=== PATIENT | female | born 1950 | race Caucasian/White ===

== ENCOUNTER 2022-04-09 14:34 | Emergency (ER) | payer MEDICARE, OTHER ==
[~2022-04-09] VITALS: Ht 152.4 cm; Wt 79.8 kg
[2022-04-09] MEDS ORDERED: Roxicodone5 MG PO (17:06)
== END 2022-04-09 17:34 | disposition home or self-care (01) ==
LOC: ER 14:34
DX: R52 Pain, unspecified (principal); E11.42 Type 2 diabetes mellitus with diabetic polyneuropathy; Z79.899 Other long term (current) drug therapy
CPT/HCPCS: 99283

== ENCOUNTER → 2022-06-07 | Outpatient (CLI) | payer OTHER ==
[~2022-06-07] MED LIST: ALBU2.5V5 INH; ALBU90OI INH; ALUM-MAG HYDROX30 ML PO; ATORVASTATIN CA40 M1 PO; Acetaminophen325 M1 PO; Aspir 8181 MG PO; BANOPHEN25 MG PO; CLOP75 PO; Crestor20 MG PO; DECADRON4 M1 PO; DIAPER RASH113 G1 TOP; FURO40 PO; FUROSEMIDE40 MG PO; Flonase 0.05% N16 GM; GABA300 PO; GLIM4 PO; JARDIANCE25 MG PO; Januvia50 MG PO; LATANOPROST2.5 M3 BOTHEYES; LEVSOD100 PO; LEVSOD75 PO; LOPE2C PO; Latanoprost BOTHEYES; MIRALAX17 GM PO; MYRBETRIQ25 MG PO; MYRBETRIQ50 MG PO; NEURONTIN300 MG PO; NITR.4SL SL; OXYC5 PO; POTA10T PO; PREG150 PO; Q-Tussin100 MG/5 M PO; Roxicodone5 MG PO; SENNA LAXATIVE8.6 MG PO; SITA100T2 PO; SOLI5 PO; SYNTHROID150 MC1 PO; TRADJENTA5 MG PO
== END | disposition home or self-care (01) ==
LOC: LAB 12:55 → LAB SHORT 12:55
DX: N89.8 Other specified noninflammatory disorders of vagina (principal)
CPT/HCPCS: 87086

== ENCOUNTER 2022-06-15 13:17 | Emergency (ER) | payer OTHER ==
[~2022-06-15] VITALS: Ht 152.4 cm; Wt 84.4 kg
[~2022-06-15 13:17] MED LIST changes: -ALBU2.5V5 INH; -ALBU90OI INH; -ALUM-MAG HYDROX30 ML PO; -ATORVASTATIN CA40 M1 PO; -Acetaminophen325 M1 PO; -Aspir 8181 MG PO; -BANOPHEN25 MG PO; -CLOP75 PO; -Crestor20 MG PO; -DECADRON4 M1 PO; -DIAPER RASH113 G1 TOP; -FURO40 PO; -FUROSEMIDE40 MG PO; -Flonase 0.05% N16 GM; -GABA300 PO; -GLIM4 PO; -JARDIANCE25 MG PO; -Januvia50 MG PO; -LATANOPROST2.5 M3 BOTHEYES; -LEVSOD100 PO; -LEVSOD75 PO; -LOPE2C PO; -Latanoprost BOTHEYES; -MIRALAX17 GM PO; -MYRBETRIQ25 MG PO; -MYRBETRIQ50 MG PO; -NEURONTIN300 MG PO; -NITR.4SL SL; -OXYC5 PO; -POTA10T PO; -PREG150 PO; -Q-Tussin100 MG/5 M PO; -SENNA LAXATIVE8.6 MG PO; -SITA100T2 PO; -SOLI5 PO; -SYNTHROID150 MC1 PO; -TRADJENTA5 MG PO
[2022-06-15 14:48] LABS: BASOPHILS ABSOLUTE AUTO 0.02 K/mm3 (0.00-0.23); BASOPHILS PERCENT AUTO 0 % (0-2); EOSINOPHILS ABSOLUTE AUTO 0.04 K/mm3 (0.00-0.68); EOSINOPHILS PERCENT AUTO 1 % (0-6); Hematocrit 40.5 % (33.0-51.0); Hemoglobin 13.3 g/dL (11.5-16.0); IMMATURE GRAN ABSOLUTE AUTO 0.06 K/mm3 (0.00-0.10); IMMATURE GRAN PERCENT AUTO 1 % (0-1); LYMPHOCYTES ABSOLUTE AUTO 1.38 K/mm3 (0.84-5.20); LYMPHOCYTES PERCENT AUTO 19 % (21-46); MONOCYTES ABSOLUTE AUTO 0.35 K/mm3 (0.16-1.47); MONOCYTES PERCENT AUTO 5 % (4-13); Mean Corpuscular HGB 29.6 pg (26.0-34.0); Mean Corpuscular HGB Conc 32.8 g/dL (31.5-36.5); Mean Corpuscular Volume 90 fL (80-100); Mean Platelet Volume 10.2 fL (9.1-12.4); NEUTROPHILS ABSOLUTE AUTO 5.53 K/mm3 (1.96-9.15); NEUTROPHILS PERCENT AUTO 75 % (41-73); Platelet Count 188 K/mm3 (150-400); RDW Coefficient Variation 13.7 % (11.7-14.2); RDW Standard Deviation 45.9 fL (35.1-46.3); White Blood Cell Count 7.38 K/mm3 (4.00-11.30)
[2022-06-15] MEDS ORDERED: Aspir 8181 MG PO (15:06)
[2022-06-15] MEDS ORDERED: ALBU2.5V5 INH (15:06)
[2022-06-15] MEDS ORDERED: GLIM4 PO (15:07)
[2022-06-15] MEDS ORDERED: JARDIANCE25 MG PO (15:07)
[2022-06-15] MEDS ORDERED: CLOP75 PO (15:07)
[2022-06-15] MEDS ORDERED: LEVSOD75 PO (15:08)
[2022-06-15] MEDS ORDERED: MYRBETRIQ50 MG PO (15:09)
[2022-06-15] MEDS ORDERED: POTA10T PO (15:09)
[2022-06-15] MEDS ORDERED: PREG150 PO (15:10)
[2022-06-15] MEDS ORDERED: Crestor20 MG PO (15:11)
[2022-06-15 16:28] LABS: Albumin, Blood 3.3 g/dL (3.4-5.0); Albumin/Globulin Ratio 0.7 (0.8-1.8); Bilirubin, Total 0.8 mg/dL (0.1-1.0); Bun/Creatinine Ratio 11.7 (12.0-20.0); Calcium, Blood 9.3 mg/dL (8.5-10.1); Creatinine, Blood 0.86 mg/dL (0.40-1.00); Globulin, Blood 4.7 g/dL (2.2-4.0); Potassium, Blood 3.6 mmol/L (3.5-5.5)
[2022-06-15 19:09] LABS: Source, Urine Foley catheter
[2022-06-15 19:20] LABS: Appearance, Urine Clear (Clear); Bilirubin, Urine Neg (Neg); Blood, Urine Neg (Neg); Color, Urine Yellow (P-Yellow); Glucose Qualitative, Urine 4+ (Neg); Ketones, Urine Neg (Neg); Leukocyte Esterase, Urine Neg (Neg); Nitrite, Urine Neg (Neg); Protein, Urine Neg (Neg); Urobilinogen, Urine NORM (Normal)
== END 2022-06-15 21:15 | disposition home or self-care (01) ==
LOC: ER 13:17
PROVIDERS: Emergency Medicine
DX: R10.84 Generalized abdominal pain (principal); R33.9 Retention of urine, unspecified; R11.2 Nausea with vomiting, unspecified; R19.7 Diarrhea, unspecified
CPT/HCPCS: 51702; 51798; 74177; 80053; 81003; 83690; 85025; J2405; J3010; J7030; Q9967

== ENCOUNTER 2022-07-01 14:44 | Observation (INO) | payer OTHER ==
[~2022-07-01] VITALS: Ht 152.4 cm; Wt 82.2 kg
[~2022-07-01 14:44] MED LIST changes: +ALBU2.5V5 INH; +Aspir 8181 MG PO; +CLOP75 PO; +Crestor20 MG PO; +GLIM4 PO; +JARDIANCE25 MG PO; +LEVSOD75 PO; +MYRBETRIQ50 MG PO; +POTA10T PO; +PREG150 PO
[2022-07-01 15:35] LABS: BASOPHILS ABSOLUTE AUTO 0.01 K/mm3 (0.00-0.23); BASOPHILS PERCENT AUTO 0 % (0-2); EOSINOPHILS ABSOLUTE AUTO 0.15 K/mm3 (0.00-0.68); EOSINOPHILS PERCENT AUTO 4 % (0-6); Hematocrit 40.3 % (33.0-51.0); Hemoglobin 12.9 g/dL (11.5-16.0); IMMATURE GRAN ABSOLUTE AUTO 0.02 K/mm3 (0.00-0.10); IMMATURE GRAN PERCENT AUTO 1 % (0-1); LYMPHOCYTES ABSOLUTE AUTO 0.93 K/mm3 (0.84-5.20); LYMPHOCYTES PERCENT AUTO 22 % (21-46); MONOCYTES ABSOLUTE AUTO 0.72 K/mm3 (0.16-1.47); MONOCYTES PERCENT AUTO 17 % (4-13); Mean Corpuscular HGB 29.4 pg (26.0-34.0); Mean Corpuscular Volume 92 fL (80-100); NEUTROPHILS PERCENT AUTO 57 % (41-73); Platelet Count 122 K/mm3 (150-400); RDW Coefficient Variation 14.6 % (11.7-14.2); RDW Standard Deviation 49.1 fL (35.1-46.3); Red Blood Cell Count 4.39 M/mm3 (3.80-5.20); White Blood Cell Count 4.23 K/mm3 (4.00-11.30)
[2022-07-01 15:53] LABS: Albumin, Blood 3.1 g/dL (3.4-5.0); Albumin/Globulin Ratio 0.8 (0.8-1.8); Bilirubin, Total 0.5 mg/dL (0.1-1.0); Bun/Creatinine Ratio 17.6 (12.0-20.0); Creatinine, Blood 0.91 mg/dL (0.40-1.00); Globulin, Blood 4.1 g/dL (2.2-4.0); Potassium, Blood 3.3 mmol/L (3.5-5.5); Total Protein, Blood 7.2 g/dL (6.4-8.2)
[2022-07-01] MEDS ORDERED: BANOPHEN25 MG PO (18:12)
[2022-07-01] MEDS ORDERED: FUROSEMIDE40 MG PO (18:14)
[2022-07-01] MEDS ORDERED: Latanoprost BOTHEYES (18:15)
[2022-07-01] MEDS ORDERED: SYNTHROID150 MC1 PO (18:17)
[2022-07-01] MEDS ORDERED: Januvia50 MG PO (18:18)
[2022-07-01] MEDS ORDERED: ATORVASTATIN CA40 M1 PO (20:18)
[2022-07-01] MEDS ORDERED: NEURONTIN300 MG PO (20:18)
[2022-07-01] MEDS ORDERED: LATANOPROST2.5 M3 BOTHEYES (20:20)
[2022-07-01] MEDS ORDERED: Acetaminophen325 M1 PO (22:25)
[2022-07-01] MEDS ORDERED: ALBU90OI INH (22:27)
[2022-07-01] MEDS ORDERED: ALUM-MAG HYDROX30 ML PO (22:28)
[2022-07-01] MEDS ORDERED: Aspir 8181 MG PO (22:28)
[2022-07-01] MEDS ORDERED: GLIM4 PO (22:29)
[2022-07-01] MEDS ORDERED: CLOP75 PO (22:29)
[2022-07-01] MEDS ORDERED: LOPE2C PO (22:30)
[2022-07-01] MEDS ORDERED: MYRBETRIQ25 MG PO (22:30)
[2022-07-01] MEDS ORDERED: JARDIANCE25 MG PO (22:30)
[2022-07-01] MEDS ORDERED: NITR.4SL SL (22:31)
[2022-07-01] MEDS ORDERED: MIRALAX17 GM PO (22:31)
[2022-07-01] MEDS ORDERED: PREG150 PO (22:32)
[2022-07-01] MEDS ORDERED: POTA10T PO (22:32)
[2022-07-01] MEDS ORDERED: Crestor20 MG PO (22:32)
[2022-07-01] MEDS ORDERED: DIAPER RASH113 G1 TOP (22:34)
[2022-07-01] MEDS ORDERED: SENNA LAXATIVE8.6 MG PO (22:35)
[2022-07-01] MEDS ORDERED: OXYC5 PO (22:36)
--- NOTE | 2022-07-02 05:11 | NUR ---
LATE ENTRY FOR 07/01/22 2020: ADMISSION: PATIENT IS RECIEVED FROM ER VIA STRETCHER. PATIENT ABLE TO AMB. FROM STRETCHER TO THE BED WITH STAEDY GAIT. PATIENT REPORTS FEELING WEEK. PATIENT IS ORIENTED TOP ROOM AND CALL HAYNES. PATIENT IS IN ENHANCED ISOLATION FOR COVID.
[2022-07-02 05:48] LABS: BASOPHILS ABSOLUTE AUTO 0.02 K/mm3 (0.00-0.23); BASOPHILS PERCENT AUTO 0 % (0-2); EOSINOPHILS ABSOLUTE AUTO 0.19 K/mm3 (0.00-0.68); EOSINOPHILS PERCENT AUTO 3 % (0-6); Hematocrit 41.4 % (33.0-51.0); Hemoglobin 13.5 g/dL (11.5-16.0); IMMATURE GRAN ABSOLUTE AUTO 0.02 K/mm3 (0.00-0.10); IMMATURE GRAN PERCENT AUTO 0 % (0-1); LYMPHOCYTES ABSOLUTE AUTO 1.31 K/mm3 (0.84-5.20); LYMPHOCYTES PERCENT AUTO 22 % (21-46); MONOCYTES ABSOLUTE AUTO 0.73 K/mm3 (0.16-1.47); MONOCYTES PERCENT AUTO 12 % (4-13); Mean Corpuscular HGB 29.7 pg (26.0-34.0); Mean Corpuscular HGB Conc 32.6 g/dL (31.5-36.5); Mean Corpuscular Volume 91 fL (80-100); Mean Platelet Volume 10.3 fL (9.1-12.4); NEUTROPHILS ABSOLUTE AUTO 3.77 K/mm3 (1.96-9.15); NEUTROPHILS PERCENT AUTO 63 % (41-73); Platelet Count 147 K/mm3 (150-400); RDW Coefficient Variation 14.5 % (11.7-14.2); RDW Standard Deviation 48.5 fL (35.1-46.3); Red Blood Cell Count 4.54 M/mm3 (3.80-5.20); White Blood Cell Count 6.04 K/mm3 (4.00-11.30)
[2022-07-02 06:14] LABS: Albumin, Blood 3.1 g/dL (3.4-5.0); Anion Gap 8 mmol/L (6-16); Blood Urea Nitrogen 16 mg/dL (8-24); Bun/Creatinine Ratio 16.2 (12.0-20.0); CO2, Blood 30 mmol/L (21-32); Calcium, Blood 8.5 mg/dL (8.5-10.1); Chloride, Blood 104 mmol/L (98-108); Creatinine, Blood 0.99 mg/dL (0.40-1.00); Glomerular Filtration Rate 61 (60-); Glucose, Blood 160 mg/dL (70-99); Magnesium, Blood 2.2 mg/dL (1.6-2.4); Phosphorus, Blood 3.4 mg/dL (2.5-4.9); Potassium, Blood 2.7 mmol/L (3.5-5.5); Sodium, Blood 142 mmol/L (136-145)
[2022-07-02] MEDS ORDERED: Q-Tussin100 MG/5 M PO (14:55)
[2022-07-02] MEDS ORDERED: DECADRON4 M1 PO (14:55)
[2022-07-02] MEDS ORDERED: Flonase 0.05% N16 GM (14:56)
--- NOTE | 2022-07-02 15:18 | NUR ---
PT DISCHARGED THE PT VERBALIZED UNDERSTANDING OF THE DC INSTRUCTIONS. THE PTS PRESCRIPITIONS WERE FAXED TO PHARMACY OF HER REQUEST. THE PT REPORTED THAT SHE WAS FEELING BETTER AT THE TIME OF DC. PT WAS TRANSFERED VIA WHEELCHAIR ACCOMPANIED BY [facility]
== END 2022-07-02 15:10 | disposition home health service (06) ==
LOC: ER 14:44 → MEDS 17:17 → ERHOLD 17:17 → MEDS 21:23
PROVIDERS: Student in an Organized Health Care Education/Training Program; ADMIT Family Medicine
DX: U07.1 COVID-19 (principal); J96.01 Acute respiratory failure with hypoxia; M81.0 Age-related osteoporosis without current pathological fracture; E11.40 Type 2 diabetes mellitus with diabetic neuropathy, unspecified; M79.7 Fibromyalgia; E87.6 Hypokalemia; Z88.6 Allergy status to analgesic agent; Z88.8 Allergy status to other drugs, medicaments and biological substances; I51.7 Cardiomegaly
CPT/HCPCS: 36415; 71045; 80053; 80069; 82947; 83735; 83880; 84132; 84484; 85025; 93005; 93010; 94761; 99285-25; A9270; J1650; J7030

== ENCOUNTER 2022-07-30 11:56 | Emergency (ER) | payer OTHER ==
[~2022-07-30] VITALS: Ht 152.4 cm; Wt 83.0 kg
[~2022-07-30 11:56] MED LIST changes: +ALBU90OI INH; +ALUM-MAG HYDROX30 ML PO; +ATORVASTATIN CA40 M1 PO; +Acetaminophen325 M1 PO; +BANOPHEN25 MG PO; +DECADRON4 M1 PO; +DIAPER RASH113 G1 TOP; +FURO40 PO; +FUROSEMIDE40 MG PO; +Flonase 0.05% N16 GM; +GABA300 PO; +Januvia50 MG PO; +LATANOPROST2.5 M3 BOTHEYES; +LEVSOD100 PO; +LOPE2C PO; +Latanoprost BOTHEYES; +MIRALAX17 GM PO; +MYRBETRIQ25 MG PO; +NEURONTIN300 MG PO; +NITR.4SL SL; +OXYC5 PO; +Q-Tussin100 MG/5 M PO; +SENNA LAXATIVE8.6 MG PO; +SITA100T2 PO; +SOLI5 PO; +SYNTHROID150 MC1 PO; +TRADJENTA5 MG PO
== END 2022-07-30 15:21 | disposition left against medical advice (07) ==
LOC: ER 11:56
DX: R52 Pain, unspecified (principal); Z53.21 Procedure and treatment not carried out due to patient leaving prior to being seen by health care provider
CPT/HCPCS: 99281

== ENCOUNTER → 2022-08-30 | Outpatient (CLI) | payer OTHER ==
[~2022-08-30] MED LIST changes: +BASAGLAR K100 UNIT/3 SC; +BASAGLAR K100 UNIT/8; +GABAPENTIN600 MG PO; +METR500 PO; +ZOLOFT50 MG PO
[2022-08-31 10:26] LABS: Candida species (DNA Probe) Negative (NEGATIVE); G. vaginalis (DNA Probe) Positive (NEGATIVE); T. vaginalis (DNA Probe) Negative (NEGATIVE)
== END | disposition home or self-care (01) ==
LOC: LAB SHORT 14:58 → LAB 14:58
PROVIDERS: Obstetrics & Gynecology
DX: N89.8 Other specified noninflammatory disorders of vagina (principal)
CPT/HCPCS: 87480; 87510; 87660

== ENCOUNTER 2022-09-07 08:09 | Day surgery (SDC) | payer OTHER ==
[~2022-09-07] VITALS: Ht 152.4 cm; Wt 81.2 kg
[~2022-09-07 08:09] MED LIST changes: -BASAGLAR K100 UNIT/3 SC; -BASAGLAR K100 UNIT/8; -GABAPENTIN600 MG PO; -METR500 PO; -ZOLOFT50 MG PO
[2022-09-07] MEDS ORDERED: OXYC5 PO (08:51)
--- NOTE | 2022-09-07 08:57 | NUR ---
09/07/22 0857 Elizabeth Mcguire AT 0843 P AT 0837
--- NOTE | 2022-09-07 11:29 | NUR ---
09/07/22 1129 MARIANNA GEORGES PTS IV GOT PULLED OUT WHEN PATIENT WAS WAKING UP FROM PROCEDURE. SITE CHECKED AND CLEANED. GAUZE AND TAPE APPLIED TO AREA. REPORT GIVEN TO JERRY HUBER. AUDIT INTERN AWARE OF IV BEING PULLED OUT. OK TO LEAVE IV D/C'D PER DR. CAMEJO.
[2022-09-08] MEDS ORDERED: GABAPENTIN600 MG PO (13:41)
[2022-09-08] MEDS ORDERED: BASAGLAR K100 UNIT/3 SC (13:42)
[2022-09-08] MEDS ORDERED: METR500 PO (13:44)
[2022-09-08] MEDS ORDERED: ZOLOFT50 MG PO (13:48)
[2022-09-08] MEDS ORDERED: BASAGLAR K100 UNIT/8 (13:48)
[2022-09-08] MEDS ORDERED: MYRBETRIQ50 MG PO (13:49)
== END 2022-09-07 11:05 | disposition home or self-care (01) ==
LOC: ORSCSDS 08:09
PROVIDERS: Student in an Organized Health Care Education/Training Program
PROC: 08RK3JZ Replacement of Left Lens with Synthetic Substitute, Percutaneous Approach (ICD-10-PCS; principal; 2022-09-07 09:45)
DX: H25.13 Age-related nuclear cataract, bilateral (principal); H40.1130 Primary open-angle glaucoma, bilateral, stage unspecified; G47.33 Obstructive sleep apnea (adult) (pediatric); Z86.73 Personal history of transient ischemic attack (TIA), and cerebral infarction without residual deficits; E11.40 Type 2 diabetes mellitus with diabetic neuropathy, unspecified; E11.9 Type 2 diabetes mellitus without complications; I73.9 Peripheral vascular disease, unspecified; M79.7 Fibromyalgia; E07.9 Disorder of thyroid, unspecified; E66.9 Obesity, unspecified; Z68.35 Body mass index [BMI] 35.0-35.9, adult; Z79.02 Long term (current) use of antithrombotics/antiplatelets; Z79.51 Long term (current) use of inhaled steroids; Z79.899 Other long term (current) drug therapy
CPT/HCPCS: 82947; A9270; J1100; J2001; J2250; J2405; J2704; J3010; J7040; V2632

== ENCOUNTER 2022-09-08 11:12 | Emergency (ER) | payer OTHER ==
[~2022-09-08] VITALS: Ht 152.4 cm; Wt 80.3 kg
[2022-09-08 11:29] LABS: BASOPHILS ABSOLUTE AUTO 0.01 K/mm3 (0.00-0.23); BASOPHILS PERCENT AUTO 0 % (0-2); EOSINOPHILS ABSOLUTE AUTO 0.01 K/mm3 (0.00-0.68); EOSINOPHILS PERCENT AUTO 0 % (0-6); Hematocrit 39.2 % (33.0-51.0); Hemoglobin 13.3 g/dL (11.5-16.0); IMMATURE GRAN ABSOLUTE AUTO 0.06 K/mm3 (0.00-0.10); IMMATURE GRAN PERCENT AUTO 1 % (0-1); LYMPHOCYTES ABSOLUTE AUTO 1.78 K/mm3 (0.84-5.20); LYMPHOCYTES PERCENT AUTO 15 % (21-46); MONOCYTES ABSOLUTE AUTO 0.85 K/mm3 (0.16-1.47); MONOCYTES PERCENT AUTO 7 % (4-13); Mean Corpuscular HGB 31.2 pg (26.0-34.0); Mean Corpuscular HGB Conc 33.9 g/dL (31.5-36.5); Mean Corpuscular Volume 92 fL (80-100); Mean Platelet Volume 9.7 fL (9.1-12.4); NEUTROPHILS ABSOLUTE AUTO 9.26 K/mm3 (1.96-9.15); NEUTROPHILS PERCENT AUTO 77 % (41-73); Platelet Count 215 K/mm3 (150-400); RDW Coefficient Variation 13.2 % (11.7-14.2); Red Blood Cell Count 4.26 M/mm3 (3.80-5.20); White Blood Cell Count 11.97 K/mm3 (4.00-11.30)
[2022-09-08 11:48] LABS: Albumin, Blood 3.6 g/dL (3.4-5.0); Albumin/Globulin Ratio 0.9 (0.8-1.8); Bilirubin, Total 0.7 mg/dL (0.1-1.0); Bun/Creatinine Ratio 13.5 (12.0-20.0); Calcium, Blood 8.8 mg/dL (8.5-10.1); Creatinine, Blood 0.89 mg/dL (0.40-1.00); Globulin, Blood 3.9 g/dL (2.2-4.0); Potassium, Blood 4.4 mmol/L (3.5-5.5); Total Protein, Blood 7.5 g/dL (6.4-8.2)
[2022-09-08 12:13] LABS: Influenza A, PCR NEGATIVE (NEGATIVE); Influenza B, PCR NEGATIVE (NEGATIVE); Resp Syncytial Virus, PCR NEGATIVE (NEGATIVE); SARS-Cov-2 (COVID-19) PCR, MMC NEGATIVE (NEGATIVE)
[2022-09-08] MEDS ORDERED: GABAPENTIN600 MG PO (13:41)
[2022-09-08] MEDS ORDERED: BASAGLAR K100 UNIT/3 SC (13:42)
[2022-09-08] MEDS ORDERED: METR500 PO (13:44)
[2022-09-08] MEDS ORDERED: ZOLOFT50 MG PO (13:48)
[2022-09-08] MEDS ORDERED: BASAGLAR K100 UNIT/8 (13:48)
[2022-09-08] MEDS ORDERED: MYRBETRIQ50 MG PO (13:49)
== END 2022-09-08 14:48 | disposition home or self-care (01) ==
LOC: ER 11:12
PROVIDERS: Student in an Organized Health Care Education/Training Program
DX: R07.9 Chest pain, unspecified (principal); G89.29 Other chronic pain; E11.40 Type 2 diabetes mellitus with diabetic neuropathy, unspecified; Z87.39 Personal history of other diseases of the musculoskeletal system and connective tissue; Z88.7 Allergy status to serum and vaccine; Z88.8 Allergy status to other drugs, medicaments and biological substances; Z88.6 Allergy status to analgesic agent; Z91.018 Allergy to other foods; Z79.899 Other long term (current) drug therapy; Z20.822 Contact with and (suspected) exposure to COVID-19
CPT/HCPCS: 0241U; 36415; 71046; 80053; 83735; 84484; 85025; 93005; 93010; 96374; 96375; 99285-25; A9270; J1885

== ENCOUNTER → 2022-09-15 | Outpatient (CLI) | payer OTHER ==
[~2022-09-15] MED LIST changes: +BASAGLAR K100 UNIT/3 SC; +BASAGLAR K100 UNIT/8; +CLIN150 PO; +GABAPENTIN600 MG PO; +METR500 PO; +PREDNISOLO15 MG/5 ML LEFTEYE; +TIZA4 PO; +ZOLOFT50 MG PO
== END | disposition home or self-care (01) ==
LOC: LAB 16:47 → LAB SHORT 16:47
DX: R07.9 Chest pain, unspecified (principal)
CPT/HCPCS: 84484

== ENCOUNTER → 2022-09-20 | Outpatient (CLI) | payer OTHER ==
[2022-09-21 10:34] LABS: Candida species (DNA Probe) Negative (NEGATIVE); G. vaginalis (DNA Probe) Positive (NEGATIVE); T. vaginalis (DNA Probe) Negative (NEGATIVE)
== END ==
LOC: LAB 14:52 → LAB SHORT 14:52
PROVIDERS: Obstetrics & Gynecology
DX: N76.0 Acute vaginitis (principal)
CPT/HCPCS: 87480; 87510; 87660

== ENCOUNTER 2022-09-21 01:16 | Observation (INO) | payer OTHER ==
[~2022-09-21] VITALS: Ht 152.4 cm; Wt 81.7 kg
[~2022-09-21 01:16] MED LIST changes: -CLIN150 PO; -PREDNISOLO15 MG/5 ML LEFTEYE; -TIZA4 PO
[2022-09-21 01:32] LABS: BASOPHILS ABSOLUTE AUTO 0.02 K/mm3 (0.00-0.23); BASOPHILS PERCENT AUTO 0 % (0-2); EOSINOPHILS ABSOLUTE AUTO 0.03 K/mm3 (0.00-0.68); EOSINOPHILS PERCENT AUTO 0 % (0-6); Hematocrit 41.3 % (33.0-51.0); Hemoglobin 13.9 g/dL (11.5-16.0); IMMATURE GRAN ABSOLUTE AUTO 0.04 K/mm3 (0.00-0.10); IMMATURE GRAN PERCENT AUTO 0 % (0-1); LYMPHOCYTES ABSOLUTE AUTO 1.22 K/mm3 (0.84-5.20); LYMPHOCYTES PERCENT AUTO 12 % (21-46); MONOCYTES ABSOLUTE AUTO 0.56 K/mm3 (0.16-1.47); MONOCYTES PERCENT AUTO 5 % (4-13); Mean Corpuscular HGB 30.7 pg (26.0-34.0); Mean Corpuscular HGB Conc 33.7 g/dL (31.5-36.5); Mean Corpuscular Volume 91 fL (80-100); Mean Platelet Volume 9.3 fL (9.1-12.4); NEUTROPHILS ABSOLUTE AUTO 8.58 K/mm3 (1.96-9.15); NEUTROPHILS PERCENT AUTO 82 % (41-73); Platelet Count 219 K/mm3 (150-400); RDW Coefficient Variation 13.2 % (11.7-14.2); RDW Standard Deviation 44.9 fL (35.1-46.3); Red Blood Cell Count 4.53 M/mm3 (3.80-5.20); White Blood Cell Count 10.45 K/mm3 (4.00-11.30)
[2022-09-21 01:50] LABS: Albumin, Blood 3.6 g/dL (3.4-5.0); Albumin/Globulin Ratio 0.9 (0.8-1.8); Bilirubin, Total 0.5 mg/dL (0.1-1.0); Calcium, Blood 9.2 mg/dL (8.5-10.1); Creatinine, Blood 0.96 mg/dL (0.40-1.00); Potassium, Blood 4.4 mmol/L (3.5-5.5); Total Protein, Blood 7.6 g/dL (6.4-8.2)
[2022-09-21 07:41] LABS: BASOPHILS ABSOLUTE AUTO 0.01 K/mm3 (0.00-0.23); BASOPHILS PERCENT AUTO 0 % (0-2); EOSINOPHILS PERCENT AUTO 0 % (0-6); Hematocrit 39.5 % (33.0-51.0); IMMATURE GRAN ABSOLUTE AUTO 0.06 K/mm3 (0.00-0.10); IMMATURE GRAN PERCENT AUTO 1 % (0-1); LYMPHOCYTES ABSOLUTE AUTO 0.86 K/mm3 (0.84-5.20); LYMPHOCYTES PERCENT AUTO 10 % (21-46); MONOCYTES ABSOLUTE AUTO 0.36 K/mm3 (0.16-1.47); MONOCYTES PERCENT AUTO 4 % (4-13); Mean Corpuscular HGB 30.7 pg (26.0-34.0); Mean Corpuscular HGB Conc 32.9 g/dL (31.5-36.5); Mean Corpuscular Volume 93 fL (80-100); Mean Platelet Volume 9.6 fL (9.1-12.4); NEUTROPHILS ABSOLUTE AUTO 7.67 K/mm3 (1.96-9.15); NEUTROPHILS PERCENT AUTO 86 % (41-73); Platelet Count 204 K/mm3 (150-400); RDW Coefficient Variation 13.2 % (11.7-14.2); RDW Standard Deviation 45.2 fL (35.1-46.3); Red Blood Cell Count 4.23 M/mm3 (3.80-5.20); White Blood Cell Count 8.96 K/mm3 (4.00-11.30)
[2022-09-21 07:52] LABS: Bun/Creatinine Ratio 24.8 (12.0-20.0); Calcium, Blood 9.1 mg/dL (8.5-10.1); Creatinine, Blood 1.09 mg/dL (0.40-1.00); Potassium, Blood 5.4 mmol/L (3.5-5.5)
--- NOTE | 2022-09-21 14:31 | NUR ---
ADMIT PT ADMITTED. ORIENTED TO ROOM. CALL LIGHT IN REACH. WATER PROVIDED.
[2022-09-21] MEDS ORDERED: PREDNISOLO15 MG/5 ML LEFTEYE (14:57)
[2022-09-21] MEDS ORDERED: CLIN150 PO (15:19)
--- NOTE | 2022-09-22 05:38 | NUR ---
Rn summary: Patient is alert and oriented. Patient with L sided chest pain that is consistent 7-8 . Pain increases when patient moves in bed, or tries to sit up. Lung rubio diminished in bases, pt is on RA. Pt has distended abdomen, active boweltones, patient reported some vaginal spotting after getting up to the bathroom. Patient is up independantly to BR with walker. Patient was medicated x2 with morphine 4mg IV. Patient got some relief, does not rest, is on her phone all the time. Pt medicated at 0458 with oxy 5mg. Pt states pain down from 8 to 7. Plan for 2nd part of stress test. call light in reach, able to make needs known.
[2022-09-22 07:08] LABS: Bun/Creatinine Ratio 29.4 (12.0-20.0); Calcium, Blood 9.3 mg/dL (8.5-10.1); Creatinine, Blood 1.09 mg/dL (0.40-1.00); Potassium, Blood 4.1 mmol/L (3.5-5.5)
[2022-09-22] MEDS ORDERED: TIZA4 PO (17:30)
--- NOTE | 2022-09-22 18:23 | NUR ---
PT DISCHARGED THE PT VERBALIZED UNDERSTANDING OF THE DC ORDERS. THE PT SPOKE WITH DR. NAJERA OVER THE PHONE JUST PRIOR TO DC. THE PTS PRESCRIPTION WAS FAXED TO [facility]. THE PT WAS TRANSFERED VIA WHEELCHAIR ACCOMPANIED BY THE WET PROCESS MILLER HEAD ASSISTANT TO MEET HER RIDE AT THE FRONT
== END 2022-09-22 18:15 | disposition home or self-care (01) ==
LOC: ER 01:16 → ERHOLD 01:17 → MEDS 14:16
PROVIDERS: Internal Medicine; Student in an Organized Health Care Education/Training Program; ADMIT Internal Medicine
DX: R07.89 Other chest pain (principal); E11.40 Type 2 diabetes mellitus with diabetic neuropathy, unspecified; I25.2 Old myocardial infarction; I25.10 Atherosclerotic heart disease of native coronary artery without angina pectoris; E03.9 Hypothyroidism, unspecified; I50.32 Chronic diastolic (congestive) heart failure; N18.30 Chronic kidney disease, stage 3 unspecified; E11.22 Type 2 diabetes mellitus with diabetic chronic kidney disease; F32.A Depression, unspecified; M79.7 Fibromyalgia; Z88.6 Allergy status to analgesic agent; Z88.8 Allergy status to other drugs, medicaments and biological substances; Z88.7 Allergy status to serum and vaccine; Z79.4 Long term (current) use of insulin; Z79.02 Long term (current) use of antithrombotics/antiplatelets; Z95.5 Presence of coronary angioplasty implant and graft; Z86.73 Personal history of transient ischemic attack (TIA), and cerebral infarction without residual deficits; Z91.018 Allergy to other foods
CPT/HCPCS: 36415; 71045; 78452; 80048; 80053; 82947; 83880; 84484; 85025; 93005; 93010; 93017; 94760; 96372; 96376; A9270; A9500; G0378; J1650; J1815; J1885; J2270; J2405; J2785

== ENCOUNTER 2022-10-14 11:45 | Day surgery (SDC) | payer OTHER ==
[~2022-10-14] VITALS: Ht 152.4 cm; Wt 74.1 kg
[~2022-10-14 11:45] MED LIST changes: +CLIN150 PO; +PREDNISOLO15 MG/5 ML LEFTEYE; +TIZA4 PO
--- NOTE | 2022-10-14 14:12 | NUR ---
10/14/22 1412 Fara Mendoza 100CC NACL FLUID DEFICIT-SURGEON AWARE
--- NOTE | 2022-10-14 14:57 | NUR ---
10/14/22 1457 Edgar Schumacher PT C/O PAIN8/10, GIVEN 1000MG TYLENOL PO PER MD ORDER; 25MCG FENTANYL IVP GIVEN PER MD ORDER; ZOFRAN 4MG IV GIVEN PER MD ORDER FOR NAUSEA BP 146/49 PULSE 81 O2SAT 96% PT AOX3
[2022-10-20 15:10] LABS: HPV 16 Negative (Negative); HPV 18 Negative (Negative)
== END 2022-10-14 15:37 | disposition home or self-care (01) ==
LOC: ORSCSDS 11:45
PROVIDERS: Obstetrics & Gynecology
PROC: 0UDB8ZX Extraction of Endometrium, Via Natural or Artificial Opening Endoscopic, Diagnostic (ICD-10-PCS; principal; 2022-10-14 13:00)
PROC: 0UB98ZX Excision of Uterus, Via Natural or Artificial Opening Endoscopic, Diagnostic (ICD-10-PCS; principal; 2022-10-14 13:00)
DX: N84.0 Polyp of corpus uteri (principal); R93.89 Abnormal findings on diagnostic imaging of other specified body structures; N95.0 Postmenopausal bleeding; N89.8 Other specified noninflammatory disorders of vagina; I25.10 Atherosclerotic heart disease of native coronary artery without angina pectoris; E11.22 Type 2 diabetes mellitus with diabetic chronic kidney disease; I12.9 Hypertensive chronic kidney disease with stage 1 through stage 4 chronic kidney disease, or unspecified chronic kidney disease; N18.9 Chronic kidney disease, unspecified; G47.33 Obstructive sleep apnea (adult) (pediatric); I25.2 Old myocardial infarction; E03.9 Hypothyroidism, unspecified; Z86.73 Personal history of transient ischemic attack (TIA), and cerebral infarction without residual deficits; Z79.02 Long term (current) use of antithrombotics/antiplatelets; Z79.899 Other long term (current) drug therapy; J44.9 Chronic obstructive pulmonary disease, unspecified; Z79.4 Long term (current) use of insulin
CPT/HCPCS: 82947; 88305; A9270; G0123; J1100; J2250; J2405; J2704; J3010; J7120

== ENCOUNTER 2022-11-18 06:59 | Emergency (ER) | payer OTHER ==
[~2022-11-18] VITALS: Ht 170.2 cm; Wt 72.1 kg
== END 2022-11-18 09:28 | disposition home or self-care (01) ==
LOC: ER 06:59
DX: S00.83XA Contusion of other part of head, initial encounter (principal); W06.XXXA Fall from bed, initial encounter; E11.40 Type 2 diabetes mellitus with diabetic neuropathy, unspecified; Z88.6 Allergy status to analgesic agent; Z88.8 Allergy status to other drugs, medicaments and biological substances; Z88.7 Allergy status to serum and vaccine; Z91.018 Allergy to other foods; Z79.899 Other long term (current) drug therapy
CPT/HCPCS: 70450; 72125; A9270

== ENCOUNTER 2022-12-18 06:51 | Emergency (ER) | payer OTHER ==
[~2022-12-18] VITALS: Ht 152.4 cm; Wt 67.1 kg
== END 2022-12-18 09:39 | disposition home or self-care (01) ==
LOC: ER 06:51
DX: S40.011A Contusion of right shoulder, initial encounter (principal); S00.83XA Contusion of other part of head, initial encounter; W06.XXXA Fall from bed, initial encounter; Z88.6 Allergy status to analgesic agent; Z88.8 Allergy status to other drugs, medicaments and biological substances; Z91.018 Allergy to other foods; Z79.899 Other long term (current) drug therapy; Z79.4 Long term (current) use of insulin; E11.40 Type 2 diabetes mellitus with diabetic neuropathy, unspecified; N18.6 End stage renal disease; I25.10 Atherosclerotic heart disease of native coronary artery without angina pectoris; I25.2 Old myocardial infarction; I50.30 Unspecified diastolic (congestive) heart failure
CPT/HCPCS: 70450; 71045; 73030; 93005; 93010

== ENCOUNTER 2022-12-31 01:21 | Emergency (ER) | payer OTHER ==
[~2022-12-31] VITALS: Ht 157.5 cm; Wt 68.0 kg
== END 2022-12-31 03:48 | disposition home or self-care (01) ==
LOC: ER 01:21
DX: S09.90XA Unspecified injury of head, initial encounter (principal); S40.022A Contusion of left upper arm, initial encounter; I25.2 Old myocardial infarction; E11.22 Type 2 diabetes mellitus with diabetic chronic kidney disease; I50.30 Unspecified diastolic (congestive) heart failure; W06.XXXA Fall from bed, initial encounter; Z88.8 Allergy status to other drugs, medicaments and biological substances; Z79.4 Long term (current) use of insulin; Z79.890 Hormone replacement therapy; Z79.899 Other long term (current) drug therapy; Z86.73 Personal history of transient ischemic attack (TIA), and cerebral infarction without residual deficits
CPT/HCPCS: 70450; 73060; 73590; 73600; 93005; 93010

== ENCOUNTER → 2023-01-03 | Outpatient (CLI) | payer OTHER ==
[2023-01-03 19:31] LABS: Adenovirus F 40/41 Not Detected (NOT DETECT); Astrovirus Not Detected (NOT DETECT); Campylobacter Sp Not Detected (NOT DETECT); Cryptosporidium Not Detected (NOT DETECT); Cyclospora Cayetanensis Not Detected (NOT DETECT); E. Coli O157 Not Detected (NOT DETECT); Entamoeba Histolytica Not Detected (NOT DETECT); Enteroaggregative E. coli-EAEC Not Detected (NOT DETECT); Enteropathogenic E. coli-EPEC Not Detected (NOT DETECT); Enterotoxigenic E. coli-ETEC Not Detected (NOT DETECT); Giardia Lamblia Not Detected (NOT DETECT); Norovirus GI/GII Detected (NOT DETECT); Plesiomonas Shigelloides Not Detected (NOT DETECT); Rotavirus A Not Detected (NOT DETECT); Salmonella Sp Not Detected (NOT DETECT); Sapovirus Not Detected (NOT DETECT); Shiga Toxin-prod E. coli-STEC Not Detected (NOT DETECT); Shigella/Enteroin E. coli-EIEC Not Detected (NOT DETECT); Vibrio Cholerae Not Detected (NOT DETECT); Vibrio Sp Not Detected (NOT DETECT); Yersinia Enterocolitica Not Detected (NOT DETECT)
== END | disposition home or self-care (01) ==
LOC: LAB 13:00 → LAB SHORT 13:00
PROVIDERS: Physician Assistant Medical
DX: R19.7 Diarrhea, unspecified (principal)
CPT/HCPCS: 87507

== ENCOUNTER 2023-01-06 03:31 | Emergency (ER) | payer OTHER ==
[~2023-01-06] VITALS: Ht 152.4 cm; Wt 70.4 kg
[2023-01-06 05:11] LABS: BASOPHILS ABSOLUTE AUTO 0.02 K/mm3 (0.00-0.23); BASOPHILS PERCENT AUTO 0 % (0-2); EOSINOPHILS ABSOLUTE AUTO 0.17 K/mm3 (0.00-0.68); EOSINOPHILS PERCENT AUTO 2 % (0-6); Hematocrit 30.6 % (33.0-51.0); Hemoglobin 10.5 g/dL (11.5-16.0); IMMATURE GRAN ABSOLUTE AUTO 0.05 K/mm3 (0.00-0.10); IMMATURE GRAN PERCENT AUTO 1 % (0-1); LYMPHOCYTES ABSOLUTE AUTO 1.94 K/mm3 (0.84-5.20); LYMPHOCYTES PERCENT AUTO 23 % (21-46); MONOCYTES ABSOLUTE AUTO 0.63 K/mm3 (0.16-1.47); MONOCYTES PERCENT AUTO 7 % (4-13); Mean Corpuscular HGB 31.3 pg (26.0-34.0); Mean Corpuscular HGB Conc 34.3 g/dL (31.5-36.5); Mean Corpuscular Volume 91 fL (80-100); Mean Platelet Volume 9.3 fL (9.1-12.4); NEUTROPHILS ABSOLUTE AUTO 5.71 K/mm3 (1.96-9.15); NEUTROPHILS PERCENT AUTO 67 % (41-73); Platelet Count 190 K/mm3 (150-400); RDW Coefficient Variation 12.5 % (11.7-14.2); RDW Standard Deviation 41.5 fL (35.1-46.3); Red Blood Cell Count 3.35 M/mm3 (3.80-5.20); White Blood Cell Count 8.52 K/mm3 (4.00-11.30)
[2023-01-06 05:36] LABS: Albumin, Blood 2.8 g/dL (3.4-5.0); Albumin/Globulin Ratio 0.8 (0.8-1.8); Bilirubin, Total 0.7 mg/dL (0.1-1.0); Calcium, Blood 8.8 mg/dL (8.5-10.1); Creatinine, Blood 0.73 mg/dL (0.40-1.00); Globulin, Blood 3.4 g/dL (2.2-4.0); Potassium, Blood 3.6 mmol/L (3.5-5.5); Total Protein, Blood 6.2 g/dL (6.4-8.2)
[2023-01-06 07:44] LABS: Source, Urine Clean Catch
[2023-01-06 07:50] LABS: Bilirubin, Urine Neg (Neg); Blood, Urine Neg (Neg); Glucose Qualitative, Urine Neg (Neg); Ketones, Urine Neg (Neg); Leukocyte Esterase, Urine 1+ (Neg); Nitrite, Urine Neg (Neg); Protein, Urine 1+ (Neg); Urobilinogen, Urine NORM (Normal)
[2023-01-06 08:02] LABS: Appearance, Urine Hazy (Clear); Bacteria Rare /hpf; Color, Urine Yellow (P-Yellow); Red Blood Cells, Urine Not Seen /hpf (0-2); Squamous Epithelial Cells Few /hpf (Few)
== END 2023-01-06 09:40 | disposition home or self-care (01) ==
LOC: ER 03:31
PROVIDERS: Student in an Organized Health Care Education/Training Program
DX: M79.602 Pain in left arm (principal); M79.605 Pain in left leg; W19.XXXA Unspecified fall, initial encounter; R19.7 Diarrhea, unspecified; R10.9 Unspecified abdominal pain; B97.89 Other viral agents as the cause of diseases classified elsewhere; E11.40 Type 2 diabetes mellitus with diabetic neuropathy, unspecified; E11.22 Type 2 diabetes mellitus with diabetic chronic kidney disease; N18.9 Chronic kidney disease, unspecified; I25.10 Atherosclerotic heart disease of native coronary artery without angina pectoris; I50.30 Unspecified diastolic (congestive) heart failure; Z88.6 Allergy status to analgesic agent; Z88.7 Allergy status to serum and vaccine; Z88.8 Allergy status to other drugs, medicaments and biological substances; Z91.018 Allergy to other foods; Z79.899 Other long term (current) drug therapy
CPT/HCPCS: 36415; 71046; 72125; 73120; 74177; 80053; 81001; 83690; 84484; 85025; 86850; 86900; 86901; 93005; 93010; 96374-59; 99284-25; J3010; Q9967

== ENCOUNTER 2023-01-21 08:22 | Day surgery (SDC) | payer OTHER ==
[~2023-01-21] VITALS: Ht 152.4 cm; Wt 68.8 kg
--- NOTE | 2023-01-21 12:53 | NUR ---
01/21/23 1253 HOSEA LUGO VERBAL ORDER GIVEN FOR ZOFRAN 4MG IV PER DR SIENA PADILLA RN RDS
== END 2023-01-21 13:20 | disposition home or self-care (01) ==
LOC: ORSCSDS 08:22
PROVIDERS: Internal Medicine Gastroenterology
PROC: 0DB98ZX Excision of Duodenum, Via Natural or Artificial Opening Endoscopic, Diagnostic (ICD-10-PCS; principal; 2023-01-21 10:45)
PROC: 0DB68ZX Excision of Stomach, Via Natural or Artificial Opening Endoscopic, Diagnostic (ICD-10-PCS; principal; 2023-01-21 10:45)
PROC: 0DBL8ZX Excision of Transverse Colon, Via Natural or Artificial Opening Endoscopic, Diagnostic (ICD-10-PCS; principal; 2023-01-21 10:45)
PROC: 0DBK8ZX Excision of Ascending Colon, Via Natural or Artificial Opening Endoscopic, Diagnostic (ICD-10-PCS; principal; 2023-01-21 10:45)
DX: R10.13 Epigastric pain (principal); K52.9 Noninfective gastroenteritis and colitis, unspecified; D12.3 Benign neoplasm of transverse colon; D12.2 Benign neoplasm of ascending colon; K63.89 Other specified diseases of intestine; K64.4 Residual hemorrhoidal skin tags; I25.2 Old myocardial infarction; I25.10 Atherosclerotic heart disease of native coronary artery without angina pectoris; I50.9 Heart failure, unspecified; I12.9 Hypertensive chronic kidney disease with stage 1 through stage 4 chronic kidney disease, or unspecified chronic kidney disease; E11.22 Type 2 diabetes mellitus with diabetic chronic kidney disease; N18.9 Chronic kidney disease, unspecified; K21.9 Gastro-esophageal reflux disease without esophagitis; E03.9 Hypothyroidism, unspecified; R63.4 Abnormal weight loss; Z79.4 Long term (current) use of insulin; Z79.899 Other long term (current) drug therapy
CPT/HCPCS: 82947; 88305; 88342; J2001; J2370; J2405; J2704; J7120